=== PATIENT | male | born 1945 | race Caucasian/White ===

== ENCOUNTER 2019-03-13 11:16 | Outpatient (CLI) | payer OTHER ==
[2019-03-13 12:37] LABS: MICROSCOPIC NOT IND
[2019-03-13 12:38] LABS: BASOPHILS # (AUTO) 0.02 x10^3/uL (0-0.1); BASOPHILS % (AUTO) 0 % (0-1); EOSINOPHILS # (AUTO) 0.03 x10^3/uL (0-0.4); EOSINOPHILS % (AUTO) 1 % (1-7); LYMPHOCYTES % (AUTO) 32 % (22-44); MD NO; MEAN CORPUSCULAR HEMOGLOBIN 32.5 pg (27.5-34.5); MEAN CORPUSCULAR HGB CONC 32.8 g/dL (33.2-36.2); MEAN CORPUSCULAR VOLUME 99.1 fL (81-97); MEAN PLATELET VOLUME 6.7 fL (7.4-10.4); MONOCYTES # (AUTO) 0.53 x10^3/uL (0.2-0.8); MONOCYTES % (AUTO) 10 % (2-9); NEUTROPHILS # (AUTO) 3.04 x10^3/uL (1.8-6.8); NEUTROPHILS % (AUTO) 57 % (42-75); PLATELET COUNT 333 x10^3/uL (130-400); RED BLOOD COUNT 4.61 x10^6/uL (4.38-5.82); RED CELL DISTRIBUTION WIDTH 15.9 % (9.4-14.8)
[2019-03-13 12:46] LABS: CULTURE INDICATED? NO
[2019-03-13 12:46] LABS: ALANINE AMINOTRANSFERASE 30 U/L (12-78); ALBUMIN 3.4 g/dL (3.4-5.0); ANION GAP 6 mmol/L (5-15); CHLORIDE 107 mmol/L (98-107); CREATININE 0.76 mg/dL (0.7-1.3)
[2019-03-13 12:48] LABS: ALKALINE PHOSPHATASE 67 U/L (45-117); BILIRUBIN,TOTAL 0.7 mg/dL (0.2-1.0); TOTAL PROTEIN 7.3 g/dL (6.4-8.2)
[2019-03-13 13:25] LABS: INTERNATIONAL NORMALIZED RATIO 1.05 (0.93-1.1)
== END 2019-03-13 23:59 | disposition home or self-care (01) ==
LOC: STAR 11:16
PROVIDERS: ATTEND Neurological Surgery
DX: Z01.818 Encounter for other preprocedural examination (principal); J98.4 Other disorders of lung; I10 Essential (primary) hypertension; Z72.0 Tobacco use
CPT/HCPCS: 36415; 71046; 80053; 81003; 85025; 85610; 85730; 93005

== ENCOUNTER → 2019-03-19 | Outpatient (CLI) | payer OTHER | END | disposition home or self-care (01) | LOC: CFH 11:57 | PROVIDERS: ATTEND Physician Assistant Surgical | DX: R91.1 Solitary pulmonary nodule (principal); K44.9 Diaphragmatic hernia without obstruction or gangrene; K80.20 Calculus of gallbladder without cholecystitis without obstruction; I70.0 Atherosclerosis of aorta | CPT/HCPCS: 71250 ==

== ENCOUNTER 2019-03-23 05:18 | Inpatient (IN) | payer OTHER ==
[~2019-03-23] VITALS: Ht 177.8 cm; Wt 102.0 kg
[2019-03-24 09:59] VITALS: BP 149/78
== END 2019-03-24 10:45 | disposition home or self-care (01) | DRG 472 ==
LOC: ORIP 05:18 → 4NOR 10:22 → DCLOUNGE 03-24 10:25
PROVIDERS: ADMIT Neurological Surgery; ATTEND Neurological Surgery
PROC: 0RG20A0 Fusion of 2 or more Cervical Vertebral Joints with Interbody Fusion Device, Anterior Approach, Anterior Column, Open Approach (ICD-10-PCS; principal; 2019-03-23)
PROC: 0RB30ZZ Excision of Cervical Vertebral Disc, Open Approach (ICD-10-PCS; 2019-03-23)
PROC: 00NW0ZZ Release Cervical Spinal Cord, Open Approach (ICD-10-PCS; 2019-03-23)
PROC: 01N10ZZ Release Cervical Nerve, Open Approach (ICD-10-PCS; 2019-03-23)
PROC: 4A11X4G Monitoring of Peripheral Nervous Electrical Activity, Intraoperative, External Approach (ICD-10-PCS; 2019-03-23)
DX: M48.02 Spinal stenosis, cervical region (principal); G95.20 Unspecified cord compression; M50.121 Cervical disc disorder at C4-C5 level with radiculopathy; M51.17 Intervertebral disc disorders with radiculopathy, lumbosacral region; M51.16 Intervertebral disc disorders with radiculopathy, lumbar region; I10 Essential (primary) hypertension; E11.42 Type 2 diabetes mellitus with diabetic polyneuropathy; I25.10 Atherosclerotic heart disease of native coronary artery without angina pectoris; J44.9 Chronic obstructive pulmonary disease, unspecified; F41.9 Anxiety disorder, unspecified; N20.0 Calculus of kidney; M25.78 Osteophyte, vertebrae; K21.9 Gastro-esophageal reflux disease without esophagitis; H40.9 Unspecified glaucoma; M21.372 Foot drop, left foot; M21.371 Foot drop, right foot; F17.210 Nicotine dependence, cigarettes, uncomplicated; Z82.49 Family history of ischemic heart disease and other diseases of the circulatory system; I25.2 Old myocardial infarction; Z82.61 Family history of arthritis; Z81.8 Family history of other mental and behavioral disorders; Z88.8 Allergy status to other drugs, medicaments and biological substances
CPT/HCPCS: 36415; 72040; 82962; 86850; 86900; C1713; G0378; J0690; J1100; J1170; J2250; J2405; J2704; J3010; J3480; J7500; C1762; J0330; J0360; J7120

== ENCOUNTER 2019-06-22 10:00 | Inpatient (IN) | payer OTHER ==
[~2019-06-22] VITALS: Ht 177.8 cm; Wt 104.3 kg
[~2019-06-22 10:00] MED LIST: ACET-1600 PO; ALPH300T2 PO; ASCO100019 PO; ASPI-496 PO; AZAT50TA9 PO; B&C/1TAB2 PO; BACITRACIN 50,000 UNIT ONE; BUPIVACAINE 0.25% ONE; BUPIVACAINE/PF 0.5% ONE; CARB15DR47 EACHEYE; CEPH-368 PO; CYAN-27 PO; CYCL-259 PO; DULO30CA2 PO; EPINEPHRINE 1 MG/ML, 1ML ONE; ESOM20CA PO; GABA300C10 PO; HYDR-36 PO; HYDR25TA6 PO; LATA7.5D EACHEYE; LEVO112T4 PO; LOSA50TA14 PO; METF500T17 PO; NITR0.4T28 SL; POTA20TA89 PO; SIMV80TA18 PO; THROMBIN 5,000 UNIT VIAL TP ONE
[2019-06-22] MEDS ORDERED: VANCOMYCIN 1,000 MG ONE (10:42)
[2019-06-22] MEDS ORDERED: LACTATED RINGERS 1,000 ML IV SCH (12:03)
[2019-06-22] MEDS ORDERED: METO50TA82 PO (12:05)
[2019-06-22 12:07] VITALS: BP 131/79
[2019-06-22] MEDS ORDERED: MIDAZOLAM 1 MG/ML, 2ML ONE (12:29)
[2019-06-22] MEDS ORDERED: FENTANYL PF 250 MCG/5ML ONE (12:30)
[2019-06-22] MEDS ORDERED: FENTANYL PF 100 MCG/2ML IV PRN (12:30)
[2019-06-22] MEDS ORDERED: hydrALAzine 20 MG/ML, 1ML IV PRN (12:30)
[2019-06-22] MEDS ORDERED: DIAZEPAM 5 MG/ML, 2ML IVPush PRN (12:30)
[2019-06-22] MEDS ORDERED: HYDROmorphone 2 MG/ML, 1ML IVPush PRN (12:30)
[2019-06-22] MEDS ORDERED: PROMETHAZINE 25 MG/ML, 1ML IV PRN (12:30)
[2019-06-22] MEDS ORDERED: LABETALOL 5MG/ML, 20ML IV PRN ×2 (12:30→18:00)
[2019-06-22] MEDS ORDERED: ONDANSETRON 2MG/ML, 2ML IV PRN ×2 (12:30→18:00)
[2019-06-22] MEDS ORDERED: OXYcodone 5 MG/5 ML ORAL.SOL UDC PO PRN (12:30)
[2019-06-22] MEDS ORDERED: PROPOFOL 10 MG/ML, 20ML ONE (12:31)
[2019-06-22] MEDS ORDERED: ONDANSETRON 2MG/ML, 2ML ONE (12:32)
[2019-06-22] MEDS ORDERED: DEXAMETHASONE 4 MG/ML, 1ML ONE (12:32)
[2019-06-22] MEDS ORDERED: ROCURONIUM 10MG/ML,5ML ONE (12:32)
[2019-06-22] MEDS ORDERED: SUCCINYLCHOLINE 20 MG/ML, 10ML ONE (12:32)
[2019-06-22] MEDS ORDERED: GABAPENTIN 300 MG CAPSULE PO ONE (14:00)
[2019-06-22] MEDS ORDERED: FAMOTIDINE 20 MG TABLET PO ONE (14:00)
[2019-06-22] MEDS ORDERED: ACETAMINOPHEN 500 MG TABLET PO ONE (14:00)
[2019-06-22] MEDS ORDERED: CEFAZOLIN 1,000 MG ONE ×2 (14:12)
[2019-06-22] MEDS ORDERED: FENTANYL PF 100 MCG/2ML ONE (15:04)
[2019-06-22] MEDS ORDERED: FENTANYL PF 100 MCG/2ML EPIDPUSH ONE (15:07)
[2019-06-22] MEDS ORDERED: BUPIVACAINE/PF 0.25% EPIDPUSH ONE (15:07)
[2019-06-22] MEDS ORDERED: BUPIVACAINE LIPOSOME/PF 20ML INFIL ONE (15:08)
[2019-06-22 17:20] VITALS: BP 117/69
[2019-06-22 18:00] VITALS: BP 121/69
[2019-06-22] MEDS ORDERED: HYDROcodone/APAP 5/325 TABLET PO PRN (18:00)
[2019-06-22] MEDS ORDERED: HYDROmorphone 2 MG/ML, 1ML IM PRN (18:00)
[2019-06-22] MEDS ORDERED: MAGNESIUM HYDROXIDE 8%, 30ML UDC PO PRN (18:00)
[2019-06-22] MEDS ORDERED: DIPHENHYDRAMINE 50 MG/ML, 1ML IVPush PRN (18:00)
[2019-06-22] MEDS ORDERED: CYCLOBENZAPRINE 10 MG TABLET PO PRN (18:00)
[2019-06-22] MEDS ORDERED: HYDROcodone/APAP 10/325 MG TABLET PO PRN (18:00)
[2019-06-22] MEDS ORDERED: BISACODYL 10 MG SUPP PR PRN (18:00)
[2019-06-22] MEDS ORDERED: PROMETHAZINE 25 MG/ML, 1ML IM PRN (18:00)
[2019-06-22] MEDS: NS + 20MEQ KCL 1,000 ML IV SCH (18:30)
[2019-06-22] MEDS ORDERED: NITROGLYCERIN 0.4 MG BOTTLE (25 TABS) SL PRN (18:30)
[2019-06-22] MEDS ORDERED: METOPROLOL TARTRATE 25 MG TABLET PO ONE (18:30)
[2019-06-22 19:36] VITALS: BP 136/67
[2019-06-22] MEDS ORDERED: LATANOPROST OPHTH 0.005%, 2.5ML OP SCH (21:00)
[2019-06-22] MEDS ORDERED: SIMVASTATIN 40 MG TABLET PO SCH (21:00)
[2019-06-22] MEDS: INSULIN REGULAR 100 UNITS/ML, 3ML VIAL SQ-INSULIN SCH (21:00)
[2019-06-22] MEDS ORDERED: ZOLPIDEM 5MG TABLET PO PRN (21:00)
[2019-06-22] MEDS: GABAPENTIN 300 MG CAPSULE PO SCH (21:35)
[2019-06-22] MEDS: AZATHIOPRINE 50 MG TABLET PO SCH (21:35)
[2019-06-22] MEDS: PANTOPROZOLE 40MG TABLET PO SCH (21:35)
[2019-06-22] MEDS: CEFAZOLIN PMX 1GM/50ML 50 ML IVPB SCH (21:36)
[2019-06-23 01:06] VITALS: BP 126/66
[2019-06-23] MEDS: NS + 20MEQ KCL 1,000 ML IV SCH (04:00)
[2019-06-23 05:24] LABS: BASOPHILS # (AUTO) 0.02 x10^3/uL (0-0.1); BASOPHILS % (AUTO) 0 % (0-1); EOSINOPHILS # (AUTO) 0.07 x10^3/uL (0-0.4); EOSINOPHILS % (AUTO) 1 % (1-7); LYMPHOCYTES # (AUTO) 0.72 x10^3/uL (1-3.4); LYMPHOCYTES % (AUTO) 10 % (22-44); MD NO; MEAN CORPUSCULAR HEMOGLOBIN 33.5 pg (27.5-34.5); MEAN CORPUSCULAR HGB CONC 32.5 g/dL (33.2-36.2); MEAN CORPUSCULAR VOLUME 103.1 fL (81-97); MEAN PLATELET VOLUME 7.3 fL (7.4-10.4); MONOCYTES # (AUTO) 0.49 x10^3/uL (0.2-0.8); MONOCYTES % (AUTO) 7 % (2-9); NEUTROPHILS # (AUTO) 6.04 x10^3/uL (1.8-6.8); NEUTROPHILS % (AUTO) 82 % (42-75); PLATELET COUNT 335 x10^3/uL (130-400); RED BLOOD COUNT 3.82 x10^6/uL (4.38-5.82); RED CELL DISTRIBUTION WIDTH 17.1 % (9.4-14.8)
[2019-06-23 05:32] LABS: ANION GAP 4 mmol/L (5-15); CALCIUM 8.7 mg/dL (8.5-10.1); CHLORIDE 109 mmol/L (98-107)
[2019-06-23 05:34] LABS: CREATININE 0.69 mg/dL (0.7-1.3)
[2019-06-23] MEDS: CEFAZOLIN PMX 1GM/50ML 50 ML IVPB SCH (05:42)
[2019-06-23] MEDS ORDERED: ENOXAPARIN 40 MG/0.4 ML SQ SCH (06:00)
[2019-06-23] MEDS ORDERED: LEVOTHYROXINE 112 MCG TABLET PO SCH (06:00)
[2019-06-23] MEDS: GABAPENTIN 300 MG CAPSULE PO SCH (06:22)
[2019-06-23 07:25] VITALS: BP 145/75
[2019-06-23] MEDS: INSULIN REGULAR 100 UNITS/ML, 3ML VIAL SQ-INSULIN SCH (07:25)
[2019-06-23] MEDS ORDERED: metFORMIN 500 MG TABLET PO SCH (08:00)
[2019-06-23] MEDS: AZATHIOPRINE 50 MG TABLET PO SCH (08:55)
[2019-06-23] MEDS: PANTOPROZOLE 40MG TABLET PO SCH (08:56)
[2019-06-23] MEDS ORDERED: DULOXETINE 30 MG CAPSULE.DR PO SCH (09:00)
[2019-06-23] MEDS ORDERED: LOSARTAN 50MG TABLET PO SCH (09:00)
[2019-06-23] MEDS ORDERED: CYANOCOBALAMIN 1,000 MCG TABLET PO SCH (09:00)
[2019-06-23] MEDS ORDERED: ASCORBIC ACID 500 MG TABLET PO SCH (09:00)
[2019-06-23] MEDS ORDERED: POTASSIUM CHLORIDE 20 MEQ TAB.ER.PRT PO SCH (09:00)
[2019-06-23] MEDS ORDERED: SENNA/DOCUSATE TABLET PO SCH (09:00)
[2019-06-23] MEDS ORDERED: MULTIVITS,STRESS FORMULA 1 TABLET PO SCH (09:00)
[2019-06-23] MEDS ORDERED: HYDROCHLOROTHIAZIDE 25 MG TABLET PO SCH (09:00)
[2019-06-23] MEDS ORDERED: HYDR-3240 PO (10:00)
[2019-06-23] MEDS ORDERED: CYCL-259 PO (10:01)
[2019-06-23] MEDS ORDERED: CEPH-368 PO (10:01)
== END 2019-06-23 10:45 | disposition home or self-care (01) | DRG 519 ==
LOC: ORIP 11:26 → 4NE 17:10 → DCLOUNGE 06-23 10:30
PROVIDERS: ADMIT Neurological Surgery; ATTEND Neurological Surgery
PROC: 01NB0ZZ Release Lumbar Nerve, Open Approach (ICD-10-PCS; 2019-06-22)
PROC: 01NR0ZZ Release Sacral Nerve, Open Approach (ICD-10-PCS; 2019-06-22)
PROC: 00NY0ZZ Release Lumbar Spinal Cord, Open Approach (ICD-10-PCS; 2019-06-22)
PROC: 0SB20ZZ Excision of Lumbar Vertebral Disc, Open Approach (ICD-10-PCS; principal; 2019-06-22 15:00)
DX: M48.07 Spinal stenosis, lumbosacral region (principal); G95.20 Unspecified cord compression; M21.371 Foot drop, right foot; M21.372 Foot drop, left foot; M51.17 Intervertebral disc disorders with radiculopathy, lumbosacral region; M51.26 Other intervertebral disc displacement, lumbar region; I10 Essential (primary) hypertension; E03.9 Hypothyroidism, unspecified; E11.9 Type 2 diabetes mellitus without complications; F41.9 Anxiety disorder, unspecified; H40.9 Unspecified glaucoma; F17.210 Nicotine dependence, cigarettes, uncomplicated; Z82.49 Family history of ischemic heart disease and other diseases of the circulatory system; Z82.61 Family history of arthritis; Z83.3 Family history of diabetes mellitus; Z84.1 Family history of disorders of kidney and ureter; Z88.8 Allergy status to other drugs, medicaments and biological substances; Z79.899 Other long term (current) drug therapy
CPT/HCPCS: 36415; 72100; 76000; S0020; 80048; 82962; 85025; C9290; G0378; J0171; J0690; J1100; J1650; J2250; J2405; J2704; J3010; J3370; J3480; J3490; J7500; J0330

== ENCOUNTER 2020-12-17 12:27 | Day surgery (SDC) | payer OTHER ==
[2020-12-16 11:27] LABS: BASOPHILS % (AUTO) 1 % (0-1); EOSINOPHILS % (AUTO) 1 % (1-7); LYMPHOCYTES % (AUTO) 13 % (22-44); MD NO; MEAN CORPUSCULAR HEMOGLOBIN 33.6 pg (27.5-34.5); MEAN CORPUSCULAR HGB CONC 33.7 g/dL (33.2-36.2); MEAN PLATELET VOLUME 6.7 fL (7.4-10.4); MONOCYTES % (AUTO) 12 % (2-9); NEUTROPHILS % (AUTO) 73 % (42-75); PLATELET COUNT 363 x10^3/uL (130-400); RED BLOOD COUNT 4.32 x10^6/uL (4.38-5.82)
[2020-12-16 11:39] LABS: ALANINE AMINOTRANSFERASE 21 U/L (12-78); ALBUMIN 3.3 g/dL (3.4-5.0); ANION GAP 4 mmol/L (5-15); CALCIUM 8.9 mg/dL (8.5-10.1); CHLORIDE 104 mmol/L (98-107); CREATININE 0.77 mg/dL (0.7-1.3)
[2020-12-16 11:41] LABS: ALKALINE PHOSPHATASE 80 U/L (45-117); BILIRUBIN,TOTAL 0.4 mg/dL (0.2-1.0); TOTAL PROTEIN 7.5 g/dL (6.4-8.2)
[~2020-12-17] VITALS: Ht 177.8 cm; Wt 103.0 kg
[~2020-12-17 12:27] MED LIST changes: +ACET325T14 PO; +ASPI81TA45 PO; -BACITRACIN 50,000 UNIT ONE; -BUPIVACAINE 0.25% ONE; -BUPIVACAINE/PF 0.5% ONE; +CHOL10003 PO; -CYCL-259 PO; +CYCL10TA2 PO; -EPINEPHRINE 1 MG/ML, 1ML ONE; +FERR-46 PO; +HYDR-2214 PO; +HYDR-3248 PO; -HYDR-36 PO; +METO50TA82 PO; -THROMBIN 5,000 UNIT VIAL TP ONE; +TRAM50TA2 PO; +VIT1CAPS16 PO; +VITA400C43 PO
[2020-12-17] MEDS ORDERED: LACTATED RINGERS 1,000 ML IV SCH (13:30)
[2020-12-17] MEDS ORDERED: CHLORHEXIDINE 15 ML UDC PO ONE (13:30)
[2020-12-17 13:32] VITALS: BP 144/83
[2020-12-17] MEDS ORDERED: CHLORHEXIDINE 15 ML UDC ONE (13:42)
[2020-12-17] MEDS ORDERED: MIDAZOLAM 1 MG/ML, 2ML ONE (13:59)
[2020-12-17] MEDS ORDERED: FENTANYL PF 100 MCG/2ML ONE (14:00)
[2020-12-17] MEDS ORDERED: BUPIVACAINE LIPOSOME/PF 10ML INFIL ONE (14:31)
[2020-12-17] MEDS ORDERED: VANCOMYCIN 1,000 MG ONE (15:47)
[2020-12-17] MEDS ORDERED: CLINDAMYCIN 150 MG/ML, 6ML ONE (15:47)
[2020-12-17] MEDS ORDERED: TRANEXAMIC ACID 100 MG/ML, 10ML ONE (15:47)
[2020-12-17] MEDS ORDERED: ROCURONIUM 10MG/ML,5ML ONE (16:57)
[2020-12-17] MEDS ORDERED: ONDANSETRON 2MG/ML, 2ML ONE (16:57)
[2020-12-17] MEDS ORDERED: CEFAZOLIN 1,000 MG ONE (16:57)
[2020-12-17] MEDS ORDERED: PROPOFOL 10 MG/ML, 20ML ONE (16:57)
[2020-12-17] MEDS ORDERED: NEOSTIGMINE 1 MG/ML, 10ML ONE (16:57)
[2020-12-17] MEDS ORDERED: BUPIVACAINE/PF 0.25% ONE (16:57)
[2020-12-17] MEDS ORDERED: GLYCOPYRROLATE 0.2MG/1ML, 5ML ONE (16:57)
[2020-12-17] MEDS ORDERED: DEXAMETHASONE 4 MG/ML, 1ML ONE (16:57)
[2020-12-17] MEDS ORDERED: LIDOCAINE-MPF 2% ,5ML ONE (16:57)
[2020-12-17] MEDS ORDERED: OXYcodone 5 MG/5 ML ORAL.SOL UDC PO PRN (18:30)
[2020-12-17] MEDS ORDERED: LABETALOL 5MG/ML, 20ML IV PRN (18:30)
[2020-12-17] MEDS ORDERED: ACETAMINOPHEN 325 MG TABLET PO PRN (18:30)
[2020-12-17] MEDS ORDERED: hydrALAzine 20 MG/ML, 1ML IV PRN (18:30)
[2020-12-17] MEDS ORDERED: ONDANSETRON 2MG/ML, 2ML IVPush PRN (18:30)
== END 2020-12-17 19:50 | disposition home or self-care (01) ==
LOC: OR 12:27 → OUT 19:50
PROVIDERS: ATTEND Orthopaedic Surgery
DX: M19.012 Primary osteoarthritis, left shoulder (principal); M25.712 Osteophyte, left shoulder; G89.18 Other acute postprocedural pain; I10 Essential (primary) hypertension; J44.9 Chronic obstructive pulmonary disease, unspecified; K21.9 Gastro-esophageal reflux disease without esophagitis; G47.33 Obstructive sleep apnea (adult) (pediatric); E11.9 Type 2 diabetes mellitus without complications; E78.5 Hyperlipidemia, unspecified; E03.9 Hypothyroidism, unspecified; I25.2 Old myocardial infarction; F17.210 Nicotine dependence, cigarettes, uncomplicated; Z20.822 Contact with and (suspected) exposure to COVID-19; Z79.82 Long term (current) use of aspirin; Z79.890 Hormone replacement therapy; Z79.899 Other long term (current) drug therapy; Z98.1 Arthrodesis status
CPT/HCPCS: 23472; 36415; 64415; 73030; 80053; 82962; 85025; 93005; C1713; C1776; J0690; J1100; J2250; J2405; J2704; J2710; J3010; J3370; J7120; U0003